=== PATIENT | male | born 1955 | race Caucasian/White ===

== ENCOUNTER → 2018-06-03 | Outpatient (CLI) | payer OTHER ==
[~2018-06-03] MED LIST: ALBU90OI6; ALBU90OI6 INH; AMOX500 PO; ASPI81CH; ASPI81CH PO; BACL10 PO; CEPH500 PO; CHOL10002; CODGUAEL PO; FENO48 PO; FENO67; FISH1000; FISH1000 PO; GABA300; GABA300 PO; HYDR-86; IBUP400; IBUP800 PO; LISI20 PO; MAGOXI400; MAGOXI400 PO; Norco 7.5-3251 EACH; PRAV20; PRAV20 PO; Prinivil10 MG; QVAR7.3 G1; QVAR7.3 G1 IH
== END | disposition home or self-care (01) ==
LOC: PLD 08:32 → LAB SHORT 08:32
DX: C44.319 Basal cell carcinoma of skin of other parts of face (principal)
CPT/HCPCS: 88305

== ENCOUNTER → 2019-07-09 | Outpatient (CLI) | payer MEDICARE, OTHER ==
[~2019-07-09] MED LIST changes: +BUDE10.22 INH
== END ==
LOC: LAB SHORT 15:52 → LAB 15:52
PROVIDERS: Family Medicine
DX: N40.0 Benign prostatic hyperplasia without lower urinary tract symptoms (principal)
CPT/HCPCS: 84153

== ENCOUNTER → 2019-10-22 | Outpatient (CLI) | payer MEDICARE, OTHER ==
[2019-10-22 21:00] LABS: Alanine Aminotransfer (ALT/SGP 35 U/L (12-78); Albumin/Globulin Ratio 1.1 (0.8-1.8); Alk Phos 78 U/L (50-136); Anion Gap 5 mmol/L (6-16); Aspartate Aminotrans (AST/SGOT 27 U/L (12-37); Bilirubin, Total 0.7 mg/dL (0.1-1.0); Blood Urea Nitrogen 17 mg/dL (8-24); Bun/Creatinine Ratio 21.5 (12.0-20.0); CHOL/HDL RATIO 4.5; CO2, Blood 28 mmol/L (21-32); Calcium, Blood 9.1 mg/dL (8.5-10.1); Chloride, Blood 105 mmol/L (98-108); Cholesterol 186 mg/dL (50-200); Creatinine, Blood 0.79 mg/dL (0.60-1.20); Globulin, Blood 3.6 g/dL (2.2-4.0); Glomerular Filtration Rate >60 (60-); Glucose, Blood 81 mg/dL (70-99); HDL Cholesterol 41 mg/dL (>39); LDL/HDL RATIO 2.9; Low Density Lipoprotein Chol 120 mg/dL (0-110); Potassium, Blood 4.4 mmol/L (3.5-5.5); Sodium, Blood 138 mmol/L (136-145); Total Protein, Blood 7.6 g/dL (6.4-8.2); Triglycerides 126 mg/dL (30-160); Very Low Density Lipoprot Chol 25 mg/dL (6-32)
[2019-10-22 21:12] LABS: BASOPHILS ABSOLUTE AUTO 0.12 K/mm3 (0.00-0.23); BASOPHILS PERCENT AUTO 1 % (0-2); EOSINOPHILS PERCENT AUTO 3 % (0-6); Hematocrit 51.4 % (37.0-53.0); Hemoglobin 16.9 g/dL (13.5-17.5); IMMATURE GRAN ABSOLUTE AUTO 0.04 K/mm3 (0.00-0.10); IMMATURE GRAN PERCENT AUTO 0 % (0-1); LYMPHOCYTES PERCENT AUTO 29 % (21-46); MONOCYTES ABSOLUTE AUTO 1.49 K/mm3 (0.16-1.47); MONOCYTES PERCENT AUTO 12 % (4-13); Mean Corpuscular HGB 30.7 pg (26.0-34.0); Mean Corpuscular HGB Conc 32.9 g/dL (31.5-36.5); Mean Corpuscular Volume 94 fL (80-100); Mean Platelet Volume 9.3 fL (9.1-12.4); NEUTROPHILS ABSOLUTE AUTO 6.83 K/mm3 (1.96-9.15); NEUTROPHILS PERCENT AUTO 54 % (41-73); Platelet Count 389 K/mm3 (150-400); RDW Coefficient Variation 14.9 % (11.7-14.2); RDW Standard Deviation 51.8 fL (35.1-46.3); White Blood Cell Count 12.58 K/mm3 (4.00-11.30)
[2019-10-24 08:07] LABS: HBSAG SCREEN Negative (Negative); HEP B CORE AB, IGM Negative (Negative); HEP B CORE AB, TOT Positive (Negative); HEP C VIRUS AB <0.1 (0.0-0.9)
== END ==
LOC: LAB SHORT 19:27 → LAB 19:27 → EDSTATUS 10-14 14:35 → LAB FUT 10-14 14:35
PROVIDERS: Family Medicine
DX: Z11.59 Encounter for screening for other viral diseases (principal); I10 Essential (primary) hypertension
CPT/HCPCS: 80053; 80061; 84443; 85025; 86704; 86708; 86803; 87340

== ENCOUNTER → 2019-12-01 | Outpatient (CLI) | payer MEDICARE, OTHER | END | disposition home or self-care (01) | LOC: LAB SHORT 13:07 → PLD 13:07 | DX: D48.5 Neoplasm of uncertain behavior of skin (principal) | CPT/HCPCS: 88305 ==

== ENCOUNTER → 2020-01-24 | Outpatient (CLI) | payer MEDICARE, OTHER | END | disposition home or self-care (01) | LOC: PLD 08:25 → LAB SHORT 08:25 | DX: C44.311 Basal cell carcinoma of skin of nose (principal) | CPT/HCPCS: 88305 ==

== ENCOUNTER → 2021-03-27 | Outpatient (CLI) | payer MEDICARE, OTHER | LOC: LAB 08:42 → LAB SHORT 08:42 | DX: D48.5 Neoplasm of uncertain behavior of skin (principal); L98.9 Disorder of the skin and subcutaneous tissue, unspecified; C44.612 Basal cell carcinoma of skin of right upper limb, including shoulder; L13.0 Dermatitis herpetiformis | CPT/HCPCS: 88305; 88312 ==

== ENCOUNTER → 2021-06-06 | Outpatient (CLI) | payer MEDICARE, OTHER ==
[2021-06-06 13:39] LABS: Anion Gap 5 mmol/L (6-16); Blood Urea Nitrogen 13 mg/dL (8-24); CO2, Blood 25 mmol/L (21-32); Calcium, Blood 9.2 mg/dL (8.5-10.1); Chloride, Blood 105 mmol/L (98-108); Creatinine, Blood 0.72 mg/dL (0.60-1.20); Glomerular Filtration Rate >60 (60-); Glucose, Blood 99 mg/dL (70-99); Potassium, Blood 4.3 mmol/L (3.5-5.5); Sodium, Blood 135 mmol/L (136-145)
== END | disposition home or self-care (01) ==
LOC: LAB SHORT 10:45 → LAB 10:45
PROVIDERS: Family Medicine
DX: I10 Essential (primary) hypertension (principal); R73.03 Prediabetes
CPT/HCPCS: 80048; 83036

== ENCOUNTER → 2022-07-11 | Outpatient (CLI) | payer MEDICARE, OTHER | END | disposition home or self-care (01) | LOC: LAB 11:00 → LAB SHORT 11:00 | DX: N39.0 Urinary tract infection, site not specified (principal) | CPT/HCPCS: 87086 ==

== ENCOUNTER → 2022-09-05 | Outpatient (CLI) | payer MEDICARE, OTHER | END | disposition home or self-care (01) | LOC: LAB SHORT 12:30 → LAB 12:30 | DX: R30.0 Dysuria (principal) | CPT/HCPCS: 87086 ==

== ENCOUNTER → 2022-12-19 | Outpatient (CLI) | payer MEDICARE, OTHER ==
[2022-12-19 19:26] LABS: BASOPHILS ABSOLUTE AUTO 0.12 K/mm3 (0.00-0.23); BASOPHILS PERCENT AUTO 1 % (0-2); EOSINOPHILS ABSOLUTE AUTO 0.22 K/mm3 (0.00-0.68); EOSINOPHILS PERCENT AUTO 2 % (0-6); IMMATURE GRAN ABSOLUTE AUTO 0.04 K/mm3 (0.00-0.10); IMMATURE GRAN PERCENT AUTO 0 % (0-1); LYMPHOCYTES ABSOLUTE AUTO 3.35 K/mm3 (0.84-5.20); LYMPHOCYTES PERCENT AUTO 27 % (21-46); MONOCYTES ABSOLUTE AUTO 1.36 K/mm3 (0.16-1.47); MONOCYTES PERCENT AUTO 11 % (4-13); Mean Corpuscular HGB 31.5 pg (26.0-34.0); Mean Corpuscular HGB Conc 34.8 g/dL (31.5-36.5); Mean Corpuscular Volume 91 fL (80-100); Mean Platelet Volume 9.4 fL (9.1-12.4); NEUTROPHILS PERCENT AUTO 59 % (41-73); Platelet Count 337 K/mm3 (150-400); RDW Coefficient Variation 13.7 % (11.7-14.2); RDW Standard Deviation 45.9 fL (35.1-46.3); Red Blood Cell Count 5.08 M/mm3 (4.30-5.90); White Blood Cell Count 12.29 K/mm3 (4.00-11.30)
[2022-12-19 19:43] LABS: Alanine Aminotransfer (ALT/SGP 39 U/L (12-78); Albumin/Globulin Ratio 1.1 (0.8-1.8); Alk Phos 97 U/L (50-136); Anion Gap 6 mmol/L (6-16); Aspartate Aminotrans (AST/SGOT 20 U/L (12-37); Bilirubin, Total 0.5 mg/dL (0.1-1.0); Blood Urea Nitrogen 15 mg/dL (8-24); Bun/Creatinine Ratio 21.8 (12.0-20.0); CO2, Blood 26 mmol/L (21-32); Calcium, Blood 9.2 mg/dL (8.5-10.1); Chloride, Blood 105 mmol/L (98-108); Cholesterol 158 mg/dL (50-200); Creatinine, Blood 0.69 mg/dL (0.60-1.20); Globulin, Blood 3.6 g/dL (2.2-4.0); Glomerular Filtration Rate 101 (60-); Glucose, Blood 117 mg/dL (70-99); HDL Cholesterol 40 mg/dL (>39); LDL/HDL RATIO 1.7; Low Density Lipoprotein Chol 68 mg/dL (0-110); Potassium, Blood 4.1 mmol/L (3.5-5.5); Sodium, Blood 137 mmol/L (136-145); Total Protein, Blood 7.6 g/dL (6.4-8.2); Triglycerides 249 mg/dL (30-160); Very Low Density Lipoprot Chol 49 mg/dL (6-32)
== END | disposition home or self-care (01) ==
LOC: LAB 18:27 → LAB SHORT 18:27
PROVIDERS: Family Medicine
DX: Z51.81 Encounter for therapeutic drug level monitoring (principal); Z79.899 Other long term (current) drug therapy
CPT/HCPCS: 80053; 80061; 82306; 83036; 84443; 85025

== ENCOUNTER → 2023-04-17 | Outpatient (CLI) | payer MEDICARE, OTHER | LOC: LAB SHORT 11:46 → PLD 11:46 | DX: I10 Essential (primary) hypertension (principal) | CPT/HCPCS: 88305 ==

== ENCOUNTER 2023-11-25 09:00 | Day surgery (SDC) | payer MEDICARE, OTHER ==
[~2023-11-25] VITALS: Ht 177.8 cm; Wt 76.2 kg
[2023-11-25] VITALS (7 sets, daily range): BP systolic 116–181; BP diastolic 79–116
[~2023-11-25 09:00] MED LIST changes: +ATOR80 PO; +DICLOFENAC SODIU5 ML UD; +FLUTICASONE-VI1 EACH INH; +TRAMADOL HCL E100 M2 PO; +TRELEGY ELLIPT1 EAC1 INH
[2023-11-25] MEDS ORDERED: NS 250 ML IV ONE (10:15)
[2023-11-25] MEDS ORDERED: Heparin Sodium 1000 Units/ML 10ML MDV ONE ×2 (10:16→10:27)
[2023-11-25] MEDS ORDERED: NS 1,000 ML IV ONE ×2 (10:16→10:27)
[2023-11-25] MEDS ORDERED: Nitroglycerin 2 MG/20 ML BTL ONE (10:16)
[2023-11-25] MEDS ORDERED: FentaNYL Citrate 50 MCG/ML 2 ML Injection ONE (10:28)
[2023-11-25] MEDS ORDERED: Midazolam HCl 1MG / ML 2ML Vial ONE (10:28)
--- NOTE | 2023-11-25 11:48 | NUR ---
pt returns from lab in supine postiioning. pt alert and oriented upon arrival. pt. vss upon arrival. right groin access site wnl, no swelling no hematoma. angioseal in place. pt. pulses present to frank CASTRO. pt provided with refreshments. call light in reach. dr. james to bedside to talk with pt about the procedure.
[2023-11-25] MEDS ORDERED: CLOP75 PO (11:55)
--- NOTE | 2023-11-25 12:30 | NUR ---
HEAD OF BED ELEVATED 30 DEGREES. R GROIN SITE C/D/I SOFT/NONTENDER, NO EVIDENCE OF BLEEDING. VSS ON RA
--- NOTE | 2023-11-25 12:54 | NUR ---
Pt HOB elevated, pt sitting up eating. Site checked, WNL, site remains unchanged from previous assessment no hematoma no oozing. vss remain stable.
--- NOTE | 2023-11-25 13:26 | NUR ---
PATIENT AMBULATING TO RESTROOM WITHOUT DIFFICULTY. R GROIN SITE C/D/I SOFT/NONTENDER, NO EVIDENCE OF BLEEDING. VSS ON RA. PATIENT TOLERATING PO INTAKE WELL.
--- NOTE | 2023-11-25 13:31 | NUR ---
DISCHARGE INSTRUCTIONS REVIEWED WITH PATIENT. FOLLOW UP APPOINTMENT SCHEDULED. NEW PRESCRIPTION DISCUSSED. ALL QUESTIONS WERE ANSWERED. PIV REMOVED WITHOUT DIFFICULTY, CATHETER INTACT
--- NOTE | 2023-11-25 13:45 | NUR ---
PT PREPARED FOR DISCHARGE. PT. SISTER COMING TO PICK PT UP. PT. VSS REMAIN STABLE. UP TO BATHROOM AND SITTING UP WITH NO COMPLAINTS. RIGHT GROIN SITE REMAINS WNL, NO CHANGES FROM PREVIOUS ASSESSMENTS. PT. DISCHARGE INSTRUCTIONS REVIEWED IN DETAIL. ALL QUESTIONS ANSWERED PRIOR TO DEPARTURE. PT. IV REMOVED CATHETER INTACT. MEDICATIONS REVIEWED, NEW PLAVIX PRESCRIPTION WAS FAXED TO [facility].
== END 2023-11-25 13:52 | disposition home or self-care (01) ==
LOC: MHTC 09:00
DX: I70.212 Atherosclerosis of native arteries of extremities with intermittent claudication, left leg (principal); I10 Essential (primary) hypertension; E78.5 Hyperlipidemia, unspecified; G62.9 Polyneuropathy, unspecified; J44.9 Chronic obstructive pulmonary disease, unspecified; F17.210 Nicotine dependence, cigarettes, uncomplicated; Z79.82 Long term (current) use of aspirin
CPT/HCPCS: 37221; 75625; 75716; 75774; 76937; 99152; 99153; C1760; C1769; C1876; C1887; C1894; J1644; J2250; J3010; J7030; J7050; Q9967

== ENCOUNTER 2024-08-13 11:53 | Day surgery (SDC) | payer MEDICARE, OTHER ==
[~2024-08-13] VITALS: Ht 177.8 cm; Wt 73.9 kg
[~2024-08-13 11:53] MED LIST changes: +CLOP75 PO; +Lactated Ringer's 0 ML IV ONE; +propofoL 0 ML IV ONE
[2024-08-13] MEDS ORDERED: Lactated Ringer's 1,000 ML IV ONE ×2 (12:42→12:52)
[2024-08-13] MEDS ORDERED: propofoL 50 ML IV ONE (12:52)
[2024-08-13 14:32] VITALS: BP 104/75
--- NOTE | 2024-08-13 14:33 | NUR ---
08/13/24 1433 Dee [place] PATIENT ADVISED TO CONTACT PCP ROSELIA TO REQUEST A REFERRAL TO UROLOGY FOR EVALUATION OF ENLARGED PROSTATE. PT VERBALIZED UNDERSTANDING AND THESE INSTRUCTIONS WERE WRITTEN ON DC PAPER WELL. PT'S C/O IRRITATION TO LEFT EYE AND IT WAS NOTED TO BE A LITTLE REDDENED. PT TO MONITOR EYE TO MAKE SURE IRRITATION RESOLVES.
== END 2024-08-13 14:10 | disposition home or self-care (01) ==
LOC: ORSCSDS 11:53
DX: Z12.11 Encounter for screening for malignant neoplasm of colon (principal); Z86.0101 Personal history of adenomatous and serrated colon polyps; D12.0 Benign neoplasm of cecum; D12.4 Benign neoplasm of descending colon; K57.30 Diverticulosis of large intestine without perforation or abscess without bleeding; I10 Essential (primary) hypertension; I73.9 Peripheral vascular disease, unspecified; E78.5 Hyperlipidemia, unspecified; F17.210 Nicotine dependence, cigarettes, uncomplicated; Z79.82 Long term (current) use of aspirin; Z79.02 Long term (current) use of antithrombotics/antiplatelets; Z79.899 Other long term (current) drug therapy
CPT/HCPCS: 88305; J2704; J7120

== ENCOUNTER → 2024-11-09 | Outpatient (CLI) | payer MEDICARE, OTHER ==
[~2024-11-09] MED LIST changes: -Lactated Ringer's 0 ML IV ONE; -propofoL 0 ML IV ONE
[2024-11-09 16:32] LABS: BASOPHILS PERCENT AUTO 1 % (0-2); EOSINOPHILS ABSOLUTE AUTO 0.23 K/mm3 (0.00-0.68); EOSINOPHILS PERCENT AUTO 2 % (0-6); Hematocrit 45.9 % (37.0-53.0); Hemoglobin 15.4 g/dL (13.5-17.5); IMMATURE GRAN ABSOLUTE AUTO 0.04 K/mm3 (0.00-0.10); IMMATURE GRAN PERCENT AUTO 0 % (0-1); LYMPHOCYTES ABSOLUTE AUTO 3.19 K/mm3 (0.84-5.20); LYMPHOCYTES PERCENT AUTO 26 % (21-46); MONOCYTES ABSOLUTE AUTO 1.22 K/mm3 (0.16-1.47); MONOCYTES PERCENT AUTO 10 % (4-13); Mean Corpuscular HGB 31.1 pg (26.0-34.0); Mean Corpuscular HGB Conc 33.6 g/dL (31.5-36.5); Mean Corpuscular Volume 93 fL (80-100); Mean Platelet Volume 8.9 fL (9.1-12.4); NEUTROPHILS ABSOLUTE AUTO 7.54 K/mm3 (1.96-9.15); NEUTROPHILS PERCENT AUTO 61 % (41-73); Platelet Count 355 K/mm3 (150-400); RDW Coefficient Variation 14.9 % (11.7-14.2); RDW Standard Deviation 50.9 fL (35.1-46.3); Red Blood Cell Count 4.95 M/mm3 (4.30-5.90); White Blood Cell Count 12.32 K/mm3 (4.00-11.30)
[2024-11-09 16:59] LABS: Alanine Aminotransfer (ALT/SGP 35 U/L (12-78); Albumin, Blood 4.1 g/dL (3.4-5.0); Albumin/Globulin Ratio 1.2 (0.8-1.8); Alk Phos 98 U/L (50-136); Anion Gap 7 mmol/L (3-11); Aspartate Aminotrans (AST/SGOT 22 U/L (12-37); Bilirubin, Total 0.3 mg/dL (0.1-1.0); Blood Urea Nitrogen 17 mg/dL (8-24); Bun/Creatinine Ratio 19.4 (12.0-20.0); CHOL/HDL RATIO 4.2; CO2, Blood 28 mmol/L (21-32); Calcium, Blood 9.2 mg/dL (8.5-10.1); Chloride, Blood 103 mmol/L (98-108); Cholesterol 153 mg/dL (50-200); Creatinine, Blood 0.88 mg/dL (0.60-1.20); Globulin, Blood 3.4 g/dL (2.2-4.0); Glomerular Filtration Rate 93 (60-); Glucose, Blood 99 mg/dL (70-99); HDL Cholesterol 36 mg/dL (>39); LDL/HDL RATIO 1.5; Low Density Lipoprotein Chol 54 mg/dL (0-110); Sodium, Blood 134 mmol/L (136-145); Total Protein, Blood 7.5 g/dL (6.4-8.2); Triglycerides 314 mg/dL (30-160); Very Low Density Lipoprot Chol 62 mg/dL (6-32)
== END ==
LOC: LAB SHORT 14:58 → LAB 14:58
PROVIDERS: Family Medicine
DX: Z79.899 Other long term (current) drug therapy (principal)
CPT/HCPCS: 80053; 80061; 82306; 83036; 84443; 85025